=== PATIENT | female | born 1970 | race Caucasian/White ===

== ENCOUNTER 2021-09-09 14:03 | Emergency (ER) | payer SELFPAY | END 2021-09-09 18:18 | disposition home or self-care (01) | LOC: MW.ED 14:03 | DX: J18.9 Pneumonia, unspecified organism (principal); M79.642 Pain in left hand; Z20.822 Contact with and (suspected) exposure to COVID-19 | CPT/HCPCS: 71046; 71046-26; 73130-26-LT; 73130-LT; 99283; 99283-25; U0002 ==